=== PATIENT | female | born 1955 | race Caucasian/White ===

== ENCOUNTER → 2016-11-24 | Outpatient (CLI) | payer BC ==
--- NOTE | ~2016-11-24 | ECH ---
Transthoracic Echocardiography Report (TTE) Demographics Patient Name ANAND DE LA GARZA Date of Study 11/24/2016 Patient Number [id number] Visit Number [id number] Date of 1955 Room Number Accession Number [id number] Gender Female Age 61 year(s) Referring Jas Lindsey [employer] Tank [employer]er Joselin Cesar [facility] Physician BRANNON Physician Interpreting Peyton Lemon [employer] Machine Tender Physician MD Supervising Ordering Physician Nilsa Hernandez APRN, MD/MLP Nurse Stress Licensed Insurance Agent Conclusions Summary Technically adequate exam. The estimated left ventricular ejection fraction is 60%. No significant valvular abnormalities. Procedure Type of Study TTE procedure:Echo Complete SF. Procedure Date Date: 11/24/2016 Start: 10:33 AM Technical Quality: Adequate visualization Indications:Dyspnea with exertion, Hypertension and Diabetes. Additional Indications:History of Herceptin Appropriate Use Criteria: 9 Height: 66 inches Weight: 169 pounds BSA: 1.86 m Rhythm: Sinus bradycardia HR: 55 bpm BP: 120/78 mmHg M-Mode/2D Measurements LV Diastolic Dimension: 4.4 cm LV Systolic Dimension: 3.36 cm LV Septum Diastolic: 0.79 cm LV PW Diastolic: 0.74 cm AO Root Dimension: 2.43 cm Cardiac Output: 3.55 l/min LA Dimension: 3.62 cm Cardiac Index: 1.91 l/min*m RV Diastolic Dimension: 3.16 cm LA volume index: 26 ml/m LVOT: 1.8 cm LVOT VTI: 25.38 cm RV Base: 3.5 cm LV Stroke volume: 64.55 ml RV Mid: 1.8 cm LV Stroke volume index: 34.7 ml/m TAPSE: 2.6 cm TDI-S': 13 cm/s Doppler Measurements AV Peak Velocity: 1 m/s MV Peak E-Wave: 0.57 m/s AV Peak Gradient: 4 mmHg MV Peak A-Wave: 0.54 m/s AV Mean Gradient: 2.62 mmHg MV E/A Ratio: 1.06 LVOT Peak Velocity: 1.1 m/s MV P1/2t: 68.5 msec AV Area (Continuity):2.91 cm MV Deceleration Time: 252.8 msec MV Area (PHT): 3.21 cm PV Peak Velocity: 0.61 m/s E' Septal Velocity: 0.1 m/s PV Peak Gradient: 1.47 mmHg E' Lateral Velocity: 0.09 m/s A' Septal Velocity: 0.09 m/s A' Lateral Velocity: 0.06 m/s RA Area: 11.91 cm Findings Left Ventricle Normal left ventricle size and function. Diastolic assessment reveals normal relaxation. Right Ventricle Normal right ventricle structure and function. Left Atrium Normal left atrial size. Right Atrium Normal right atrial size. Mitral Valve Normal mitral valve structure and function. Trivial mitral regurgitation by color Doppler. Aortic Valve Normal aortic valve structure and function. Tricuspid Valve Normal tricuspid valve structure and function. Trivial tricuspid regurgitation by color Doppler. Insufficient jet to calculate pulmonary pressures. Pulmonic Valve Normal pulmonic valve structure and function. Trivial pulmonic valve regurgitation by color Doppler. Pericardial Effusion No evidence of pericardial effusion. Miscellaneous Visualized portions of the aortic root and ascending aorta appear normal in size. Pleural Effusion No evidence of pleural effusion. Contractility Score LV regional wall motion:(0-Non visualized 1-Normal 2-Hypokinesis 3-Akinesis 4-Dyskinesis 5-Aneurysm) Signature
== END | disposition home or self-care (01) ==
LOC: CARD 09:54
DX: R06.00 Dyspnea, unspecified (principal); C50.911 Malignant neoplasm of unspecified site of right female breast; E11.9 Type 2 diabetes mellitus without complications; I10 Essential (primary) hypertension